=== PATIENT | female | born 1960 | race Caucasian/White ===

== ENCOUNTER 2021-04-19 16:57 | Emergency (ER) | payer OTHER, SELFPAY ==
--- NOTE | ~2021-04-19 | US_ITS ---
EXAMINATION: US VENOUS ULTRASOUND WITH DOPPLER LOWER EXTREMITY, BILATERAL CLINICAL INFORMATION: Pain. Swelling. COMPARISON: None TECHNIQUE: Ultrasound of the deep veins is performed from the hip to the calf with compression sonography and color and pulse Doppler assessment. Spectral analysis with color-flow imaging is performed. FINDINGS: RIGHT: There is normal venous compression and respiratory variation and augmented flow. The visualized common femoral vein, superficial femoral vein, profunda femoral vein, popliteal vein, and the trifurcation region shows no evidence of deep venous thrombosis. There is no significant popliteal fossa cyst. Edema in the subcutaneous tissue of the calf. Morphologically normal-appearing lymph nodes in the groin. LEFT: There is normal venous compression and respiratory variation and augmented flow. The visualized common femoral vein, superficial femoral vein, profunda femoral vein, popliteal vein, and the trifurcation region shows no evidence of deep venous thrombosis. There is no significant popliteal fossa cyst. Edema in the subcutaneous tissue of the calf. Morphologically normal-appearing lymph nodes in the groin. If the patient's symptoms persist, followup ultrasound in 5 days 7 days might be of value to exclude proximal propagation from a non-visualized calf vein. US/US venous duplex LE BI IMPRESSION: No DVT demonstrated in the bilateral lower extremity.
--- NOTE | ~2021-04-19 | CT_ITS ---
EXAMINATION: CT ANGIOGRAM OF THE CHEST WITH AND WITHOUT CONTRAST (CT PULMONARY ANGIOGRAM FOR PE) CLINICAL INFORMATION: Elevated d dimer. COMPARISON: Reports from prior abdominal ultrasound April 2006 TECHNIQUE: Prior to contrast administration, noncontrast localization images were obtained. Subsequently, multidetector volumetric imaging was performed from the thoracic inlet to below the diaphragms following the administration of 80 mL Omnipaque 350 intravenous contrast. No contrast reaction reported. Sagittal, coronal, and MIP oblique sagittal reformatted images were obtained on the CT workstation, uploaded to PACS, and reviewed. This CT examination was performed using dose optimization techniques as appropriate, variously including the following: *Automated exposure control *Adjustment of mA and/or kV according to patient size (this includes techniques or standardized protocols for targeted exams where dose is matched to indication/reason for exam; i.e. extremities or head) *Use of iterative reconstruction technique Total exam dose-length product 374 mGy-cm. FINDINGS: There is image degrading motion artifact. QUALITY OF STUDY/CONTRAST BOLUS: Suboptimal. Contrast is present within the pulmonary arteries but not as dense as it would be optimal. PULMONARY ARTERIES: No central or segmental pulmonary emboli. THORACIC AORTA: No aneurysm or dissection. LUNG: No focal consolidation, nodules or masses. PLEURA: No pleural effusion or pneumothorax. MEDIASTINUM: Normal heart size. No pericardial effusion. No hilar or mediastinal lymphadenopathy. No evidence of septal bowing or right heart strain. CHEST WALL/AXILLA: No axillary or internal mammary lymphadenopathy. OSSEOUS STRUCTURES: Multilevel spondylosis noted throughout the dorsal spine. Orthopedic hardware noted within the proximal humerus. UPPER ABDOMEN: No reflux of contrast into the hepatic veins to suggest elevated right heart pressures. Gallbladder present. Partially visualized common bile duct dilated at 12 mm. No stone or mass identified. No intrahepatic biliary dilatation. CT/CT angio chest PE protocol IMPRESSION: Slightly limited examination because of motion degrading artifact as well as suboptimal bolus timing for visualization of the pulmonary arteries. No evidence for pulmonary embolism. Lungs clear. Prominent common bile duct of uncertain etiology and significance. No evidence for stone or mass. . Correlate with laboratory values to help determine if any further workup is necessary.
[2021-04-19 17:40] VITALS: BP 154/91; PULSE 97; RESP 20; TEMP 37.1; O2SAT 96; BMI 37.4
[2021-04-19 18:58] LABS: MANUAL DIFF FLAG NO
[2021-04-19 19:00] LABS: Basophils Percent Auto 0.6 % (0-2); Eosinophils Absolute Auto 0.2 X10*3/uL (0.0-0.4); Eosinophils Percent Auto 2.4 % (0-4); Hematocrit 39.1 % (37-47); Hemoglobin 12.7 g/dl (12.0-16.0); Imm Gran Abs Auto 0.03 X10*3/uL (0.00-0.03); Imm Gran Pct Auto 0.4 % (0.0-0.4); Lymphocytes Absolute Auto 1.1 X10*3/uL (1.2-4.9); Lymphocytes Percent Auto 16.9 % (20-40); Mean Corpuscular HGB Conc 32.5 g/dl (31.0-35.0); Mean Corpuscular Hemoglobin 26.5 pg (27.0-33.0); Mean Corpuscular Volume 81.6 fL (80-98); Mean Platelet Volume 10.5 fL (9.4-12.3); Monocytes Absolute Auto 0.6 X10*3/uL (0.1-1.2); Monocytes Percent Auto 9.3 % (2-11); Neutrophils Absolute Auto 4.7 X10*3/uL (2.0-8.3); Neutrophils Percent Auto 70.4 % (45-73); Platelet Count 154 X10*3/uL (160-400); Red Blood Count 4.79 X10*6/uL (4.20-5.50); Red Cell Distribution Width 15.1 % (11.0-16.0); White Blood Count 6.7 X10*3/uL (4.8-10.8)
[2021-04-19 19:09] LABS: D Dimer 497 NG/ML
[2021-04-19 19:27] LABS: Alanine Aminotransferase 36 U/L (0-31); Albumin Level 4.5 g/dL (3.5-5.0); Alkaline Phosphatase 82 U/L (39-117); Anion Gap 16 (12-20); Aspartate Amino Transferase 44 U/L (5-31); Blood Urea Nitrogen 17 mg/dL (9-16); Calcium 9.9 mg/dL (8.4-10.2); Carbon Dioxide 26 mmol/L (22-29); Chloride 102 mmol/L (96-108); Creatinine Clr Calc Pharmacy 80.6; Estimated Glomerular Filt Rate > 60; Glucose Random 97 mg/dL (60-115); Potassium 3.6 mmol/L (3.3-5.1); Sodium 140 mmol/L (135-145)
--- NOTE | 2021-04-19 19:54 | ED_ITS ---
HPI - Extremity Problem General Chief complaint: Extremity Problem Stated complaint: swollen legs Time Seen by Provider: 04/19/21 22:21 Source: patient Mode of arrival: ambulatory Limitations: no limitations History of Present Illness HPI Narrative: 60-year-old female presents with several weeks of bilateral lower extremity swelling and increasing shortness of breath. She was seen at urgent care earlier today and was referred to the emergency department for DVT rule out. She does report some medication changes but does not recall what medication she was given in lieu of amlodipine. She does not report any chest pain or pressure, palpitations, abdominal pain, abdominal distention, dysuria, hematuria, fevers, chills, flights, hormone use, recent surgery, or any other concerning symptoms MD Complaint: extremity pain and extremity swelling Onset (ago): week(s) Pain Consistency: constant Location: left, right and lower extremity Severity scale (1-10): 7 Quality: aching Relieving factors: nothing Exacerbating factors: weight bearing Associated symptoms: shortness of breath Related Data Allergies Allergy/AdvReac Type Severity Reaction Status Date / Time azithromycin [AZITHROMYCIN] Allergy Unknown RASH Verified 04/19/21 17:39 acetaminophen [From Tylenol] Allergy Rash Verified 04/19/21 17:39 latex Allergy Hives Verified 04/19/21 17:39 Review of Systems Review of Systems: Constitutional: No Fever, No Chills ENT/Mouth: No Ear Pain, No Hoarseness, No sore throat Eyes: No Eye Pain, No Swelling, No Redness, No Foreign Body Cardiovascular: No Chest Pain, positive SOB Respiratory: No Cough, No Dyspnea Gastrointestinal: No Nausea, No Vomiting, No Diarrhea, No abdominal Pain Genitourinary: No Dysuria, No Hematuria Musculoskeletal: positive bilateral lower extremity pain and swelling, No Myalgias, No Joint Swelling Skin: No Skin lacerations, No rash Neuro: No Weakness, No Numbness, No Paresthesias, No Loss of Consciousness, No Dizziness, No Headache Psych: No Anxiety/Panic, No Depression Heme/Lymph: no easy bruising, no Lymphadenopathy Endocrine: No Polyuria, No Polydipsia Yes all other systems are reviewed and are negative PMFSH Past Medical History Attestation statement: The following information was validated with the patient. Source: old records reviewed Medical History Asthma Cirrhosis Eczema Hypothyroid Surgical History S/P rotator cuff repair Social History Social History Alcohol intake: never Patient Tobacco Use Status: Never used Tobacco Use of substances other than those prescribed or required for medical reasons: No Advance Directives: No Advance Directives Information Provided: Yes Patient : No Physical Exam Vital Signs: Vital Signs: Last Vital Signs Temp 98.8 F 04/19/21 22:51 Pulse 85 04/19/21 22:51 Resp 16 04/19/21 22:51 BP 139/91 H 04/19/21 22:51 Pulse Ox 98 04/19/21 22:51 Body Mass Index 37.4 Appearance: Alert. Oriented X3. No acute distress. Head: Normal external exam. Normocephalic. Atraumatic. No Arciniega signs noted. No raccoon eyes noted Eyes: PERRLA. EOMI. Conjunctiva and sclera normal. Eyelids normal. ENT: TM's Normal. Pharynx normal. Uvula midline. Moist mucous membranes. No trismus noted. No drooling noted. No muffled voice noted. Neck: Normal inspection. Neck supple. No adenopathy. Thyroid Normal. No meningeal signs. No neck mass noted. CVS: Normal heart rate and rhythm. Heart sound normal. No murmurs noted. Pulses equal to all extremities. Respiratory: No respiratory distress. Painless inspiration. Breath sounds sonya l. No wheezes/rales/rhonchi noted. Chest nontender. No accessory muscle usage noted or decreased air movement noted. Abdomen: Soft and nontender. Bowel sounds normal in all 4 quadrants. No distention noted. No organomegaly noted. No visible injury noted. Back: No CVA tenderness. Full range of motion noted. Skin: Skin warm and dry. Normal skin color. Normal skin turgor. No rashes/lesions/lacerations noted. Extremities: No appreciable extremity edema. Extremities exhibit normal range of motion. Extremities nontender. Neuro: cranial nerves 2-12 intact, no focal neural deficits, strength 5/5 to all extremities, No motor deficit. No sensory deficit. Course Course Course Narrative: 60-year-old female presents with bilateral lower extremity pain and swelling, and shortness of breath for the past 2 weeks. Lab values were drawn in the emergency department waiting room which indicates an elevated D-dimer. Due to this lab level we will order bilateral venous duplex and PE study protocol. 8:47 p.m. discussion with ultrasound, radiology. DVT study is negative. PE study is negative. Plan of care is to discharge home and have patient follow-up with primary care physician regarding bilateral lower extremity edema and possible need to change blood pressure medications. This was discussed in detail with patient, patient verbalized understanding of and agrees to plan of care discharge home. MDM - Extremity (Nontraumatic) Differential Diagnosis Differential diagnosis: Likely cellulitis and deep vein thrombosis of lower extremity Medical Records Attestation: I reviewed the patient's medical records. Lab Data Attestation: I reviewed the patient's lab results. Result diagrams: 04/19/21 18:37 04/19/21 18:37 Labs: Lab Results 04/19/21 04/19/21 04/19/21 Range/Units 18:37 18:37 18:37 WBC 6.7 (4.8-10.8) X10*3/uL RBC 4.79 (4.20-5.50) X10*6/uL Hgb 12.7 (12.0-16.0) g/dl Hct 39.1 (37-47) % MCV 81.6 (80-98) fL MCH 26.5 L (27.0-33.0) pg MCHC 32.5 (31.0-35.0) g/dl RDW 15.1 (11.0-16.0) % Plt Count 154 L (160-400) X10*3/uL MPV 10.5 (9.4-12.3) fL Immature Gran % (Auto) 0.4 (0.0-0.4) % Neut % (Auto) 70.4 (45-73) % Lymph % (Auto) 16.9 L (20-40) % [place] % (Auto) 9.3 (2-11) % Eos % (Auto) 2.4 (0-4) % Baso % (Auto) 0.6 (0-2) % Lymph # (Auto) 1.1 L (1.2-4.9) X10*3/uL [place] # (Auto) 0.6 (0.1-1.2) X10*3/uL Eos # (Auto) 0.2 (0.0-0.4) X10*3/uL Baso # (Auto) 0.0 (0.0-0.2) X10*3/uL Abs Immat Gran (auto) 0.03 (0.00-0.03) X10*3/uL Absolute Neuts (auto) 4.7 (2.0-8.3) X10*3/uL Absolute Nucleated RBC 0.000 (0.0-0.012) X10*3/uL Nucleated RBC % (auto) 0.0 (0.0-0.2) /100WBC D-Dimer 497 NG/ML Sodium 140 (135-145) mmol/L Potassium 3.6 (3.3-5.1) mmol/L Chloride 102 (96-108) mmol/L Carbon Dioxide 26 (22-29) mmol/L Anion Gap 16 (12-20) BUN 17 H (9-16) mg/dL Creatinine 0.89 (0.5-1.4) mg/dL Estim Creat Clear Calc 80.6 Estimated GFR > 60 Random Glucose 97 (60-115) mg/dL Calcium 9.9 (8.4-10.2) mg/dL Magnesium (1.6-2.6) mg/dL Total Bilirubin 1.0 (0.0-1.0) mg/dL AST 44 H (5-31) U/L ALT 36 H (0-31) U/L Alkaline Phosphatase 82 (39-117) U/L Troponin I High Sens (<3.5-17.0) ng/L B-Natriuretic Peptide (<100) pg/mL Total Protein 8.0 (6.5-8.0) g/dL Albumin 4.5 (3.5-5.0) g/dL 04/19/21 04/19/21 04/19/21 Range/Units 20:32 20:32 20:32 WBC (4.8-10.8) X10*3/uL RBC (4.20-5.50) X10*6/uL Hgb (12.0-16.0) g/dl Hct (37-47) % MCV (80-98) fL MCH (27.0-33.0) pg MCHC (31.0-35.0) g/dl RDW (11.0-16.0) % Plt Count (160-400) X10*3/uL MPV (9.4-12.3) fL Immature Gran % (Auto) (0.0-0.4) % Neut % (Auto) (45-73) % Lymph % (Auto) (20-40) % [place] % (Auto) (2-11) % Eos % (Auto) (0-4) % Baso % (Auto) (0-2) % Lymph # (Auto) (1.2-4.9) X10*3/uL [place] # (Auto) (0.1-1.2) X10*3/uL Eos # (Auto) (0.0-0.4) X10*3/uL Baso # (Auto) (0.0-0.2) X10*3/uL Abs Immat Gran (auto) (0.00-0.03) X10*3/uL Absolute Neuts (auto) (2.0-8.3) X10*3/uL Absolute Nucleated RBC (0.0-0.012) X10*3/uL Nucleated RBC % (auto) (0.0-0.2) /100WBC D-Dimer NG/ML Sodium (135-145) mmol/L Potassium (3.3-5.1) mmol/L Chloride (96-108) mmol/L Carbon Dioxide (22-29) mmol/L Anion Gap (12-20) BUN (9-16) mg/dL Creatinine (0.5-1.4) mg/dL Estim Creat Clear Calc Estimated GFR Random Glucose (60-115) mg/dL Calcium (8.4-10.2) mg/dL Magnesium 1.9 (1.6-2.6) mg/dL Total Bilirubin (0.0-1.0) mg/dL AST (5-31) U/L ALT (0-31) U/L Alkaline Phosphatase (39-117) U/L Troponin I High Sens 3.5 (<3.5-17.0) ng/L B-Natriuretic Peptide 34 (<100) pg/mL Total Protein (6.5-8.0) g/dL Albumin (3.5-5.0) g/dL Imaging Data Chest CT a: Attestation: I personally reviewed and interpreted this imaging study as follows: Radiologist's impression: FINDINGS: There is image degrading motion artifact. QUALITY OF STUDY/CONTRAST BOLUS: Suboptimal. Contrast is present within the pulmonary arteries but not as dense as it would be optimal. PULMONARY ARTERIES: No central or segmental pulmonary emboli. THORACIC AORTA: No aneurysm or dissection. LUNG: No focal consolidation, nodules or masses. PLEURA: No pleural effusion or pneumothorax. MEDIASTINUM: Normal heart size. No pericardial effusion. No hilar or mediastinal lymphadenopathy. No evidence of septal bowing or right heart strain. CHEST WALL/AXILLA: No axillary or internal mammary lymphadenopathy. OSSEOUS STRUCTURES: Multilevel spondylosis noted throughout the dorsal spine. Orthopedic hardware noted within the proximal humerus. UPPER ABDOMEN: No reflux of contrast into the hepatic veins to suggest elevated right heart pressures. Gallbladder present. Partially visualized common bile duct dilated at 12 mm. No stone or mass identified. No intrahepatic biliary dilatation. CT/CT angio chest PE protocol IMPRESSION: Slightly limited examination because of motion degrading artifact as well as suboptimal bolus timing for visualization of the pulmonary arteries. No evidence for pulmonary embolism. Lungs clear. Prominent common bile duct of uncertain etiology and significance. No evidence for stone or mass. . Correlate with laboratory values to help determine if any further workup is necessary. Venous duplex bilateral: Attestation: I personally reviewed and interpreted this imaging study as follows: Radiologist's impression: CLINICAL INFORMATION: Pain. Swelling. COMPARISON: None TECHNIQUE: Ultrasound of the deep veins is performed from the hip to the calf with compression sonography and color and pulse Doppler assessment. Spectral analysis with color-flow imaging is performed. FINDINGS: RIGHT: There is normal venous compression and respiratory variation and augmented flow. The visualized common femoral vein, superficial femoral vein, profunda femoral vein, popliteal vein, and the trifurcation region shows no evidence of deep venous thrombosis. There is no significant popliteal fossa cyst. Edema in the subcutaneous tissue of the calf. Morphologically normal-appearing lymph nodes in the groin. LEFT: There is normal venous compression and respiratory variation and augmented flow. The visualized common femoral vein, superficial femoral vein, profunda femoral vein, popliteal vein, and the trifurcation region shows no evidence of deep venous thrombosis. There is no significant popliteal fossa cyst. Edema in the subcutaneous tissue of the calf. Morphologically normal-appearing lymph nodes in the groin. If the patient's symptoms persist, followup ultrasound in 5 days 7 days might be of value to exclude proximal propagation from a non-visualized calf vein. US/US venous duplex LE BI IMPRESSION: No DVT demonstrated in the bilateral lower extremity. ECG Data Attestation EKG: I personally reviewed and interpreted this ECG as follows: ECG interpretation date: 04/19/21 ECG interpretation time: 20:27 Interpretation: Vent. rate 86 BPM NJ interval 154 ms QRS duration 76 ms QT/QTc 422/504 ms P-R-T axes 52 2 10 Normal sinus rhythm Prolonged QT Abnormal ECG No previous ECGs available Scores Wells DVT Localized tenderness along distribution of deep veins: 1 Entire leg swollen: 1 Score: 2 2-tier Risk: likely risk (17-53%) 3-tier Risk: moderate risk (17%) Wells PE Clinical symptoms of DVT: 3 Score: 3 2-tier Risk: likely risk (17-53%) 3-tier Risk: moderate risk (27.8%) Discharge Plan Discharge Clinical Impression: D-dimer, elevated, Swelling of both lower extremities Patient Disposition: Home, Self-Care Instructions: Edema (ED) Additional Instructions: you were evaluated for bilateral lower extremity swelling and shortness of breath. Your CT angio scan of the chest was negative for blood clots. Bilateral lower extremity venous duplex was negative for DVTs. Your D-dimer is elevated. You must follow-up with primary care physician for further workup. You did mention that your blood pressure medications were changed recently. Please discuss this change with your primary care physician. You have bilateral lower extremity edema and may need an increase in her hydrochlorothiazide or different diuretic. Thank you for choosing this emergency department for evaluation. Please follow-up with primary care physician as needed. Return to the emergency department for any new, concerning, or worsening symptoms. Interventions: ED Discharge Assessment Last Done: 04/19/21 23:01 Discharge Date/Time: 04/19/21 23:02
--- NOTE | 2021-04-19 19:54 | ECG_ITS ---
Test Reason : SOB Blood Pressure : / mmHG Vent. Rate : 086 BPM Atrial Rate : 086 BPM P-R Int : 154 ms QRS Dur : 076 ms QT Int : 422 ms P-R-T Axes : 052 002 010 degrees QTc Int : 504 ms Normal sinus rhythm Prolonged QT Abnormal ECG No previous ECGs available Referred By: Therese Hope Electronically Signed By:Luis Miguel Valdivia
[2021-04-19 19:55] VITALS: BP 155/82; PULSE 88; RESP 18; TEMP 36.9; O2SAT 94
[2021-04-19] MEDS: iohexoL 350 MG/ML 100 ML INFUS..BTL 65 ML IV (20:54)
[2021-04-19] MEDS: ondansetron HCL 4 MG/2 ML VIAL IVPUSH (20:55)
[2021-04-19] MEDS: Morphine Sulfate 4 MG/ML CARTRIDGE IVPUSH (20:55)
[2021-04-19 21:00] LABS: Magnesium 1.9 mg/dL (1.6-2.6)
[2021-04-19 21:04] LABS: B Type Natriuretic Peptide 34 pg/mL (<100); Troponin-I High Sensitivity 3.5 ng/L (<3.5-17.0)
[2021-04-19 21:06] VITALS: BP 150/88; PULSE 88; RESP 16; TEMP 37.1; O2SAT 94
[2021-04-19 22:51] VITALS: BP 139/91; PULSE 85; RESP 16; TEMP 37.1; O2SAT 98
== END 2021-04-19 23:02 | disposition home or self-care (01) ==
PROVIDERS: Nurse Practitioner Family; Emergency Provider Internal Medicine
DX: M79.89 Other specified soft tissue disorders (principal); R79.1 Abnormal coagulation profile; R06.02 Shortness of breath; M79.604 Pain in right leg; M79.605 Pain in left leg
CPT/HCPCS: 36415; 71275; 80053; 83735; 83880; 84484; 85025; 85379; 93005; 93970; 96374; 96375; 99284; J2270; J2405; Q9967

== ENCOUNTER 2023-08-28 16:31 | Emergency (ER) | payer OTHER, SELFPAY ==
--- NOTE | ~2023-08-28 | XR_ITS ---
EXAMINATION: XR CHEST CLINICAL INFORMATION: Productive cough COMPARISON: None available. TECHNIQUE: 2 views of the chest were obtained. FINDINGS: Rotated positioning. Cardiomediastinal silhouette is within normal limits. Slight elevation of the right hemidiaphragm. There is right basilar patchy airspace opacities. No dense consolidation in the left lung. No large effusion. No pulmonary edema. No pneumothorax. Thoracic spine degeneration. Orthopedic screws in the proximal right humerus. XR/XR chest 2V IMPRESSION: Right basilar patchy airspace opacities could reflect inflammatory or infectious process.
[2023-08-28 17:10] VITALS: BP 168/95; PULSE 87; RESP 18; TEMP 36.8; O2SAT 93; BMI 34.9
--- NOTE | 2023-08-28 17:12 | ED.GENADULT ---
HPI - General Adult General Chief complaint: Upper Respiratory Symptoms Stated complaint: cough, chest tightness Time Seen by Provider: 08/28/23 20:13 Source: patient, RN notes reviewed and old records reviewed Mode of arrival: ambulatory Limitations: no limitations History of Present Illness HPI narrative: Pt is a 63yo female w a pmhx including asthma who presents to the ED with a productive cough, sore throat, and body aches for a little over a week that has not improved. She notes a headache for the past few days as well. Pt has been using her inhalers as well as mucinex for the past week without improvement in her cough or SOB. Denies fevers, chills, nausea, vomiting, or changes in BM. Related Data Previous Rx's Medication Instructions Recorded amoxicillin 500 mg tablet 1,000 mg (2 x 500 mg) PO TID 7 08/28/23 days #42 tabs doxycycline hyclate 100 mg tablet 100 mg PO BID #14 tabs 08/28/23 prednisone 20 mg tablet 40 mg (2 x 20 mg) PO DAILY #10 tabs 08/28/23 Allergies Allergy/AdvReac Type Severity Reaction Status Date / Time azithromycin [AZITHROMYCIN] Allergy Unknown RASH Verified 08/28/23 17:14 acetaminophen [From Tylenol] Allergy Rash Verified 08/28/23 17:14 latex Allergy Hives Verified 08/28/23 17:14 Review of Systems Constitutional: Constitutional: Reports body ache(s), Denies chills, Reports fatigue, Denies fever(s), Reports headache(s), Reports malaise and Denies weakness Eyes: Eyes: Reports change in vision ENT: Denies dizziness, Reports headache(s) and Reports sore throat Cardiovascular: Cardiovascular: Denies chest pain and Reports dyspnea Respiratory: Respiratory: Reports change in phlegm color (yellow-green sputum), Reports chest congestion, Reports cough and Reports dyspnea Gastrointestinal: Gastrointestinal: Denies constipation, Denies diarrhea, Denies nausea and Denies vomiting Musculoskeletal: Musculoskeletal: Reports myalgias Neurologic: Denies dizziness, Reports headache(s) and Denies weakness Endocrine: Endocrine: Reports fatigue PMFSH Past Medical History Medical History Asthma Cirrhosis Eczema Hypothyroid Surgical History S/P rotator cuff repair Social History Alcohol intake: never Patient Tobacco Use Status: Never used Tobacco Advance Directives: No Advance Directives Information Provided: No Physical Exam ED Vital Signs: Vital Signs - 24 hr 08/28/23 17:10 08/28/23 19:56 08/28/23 19:56 Temperature 98.2 F 98.4 F Pulse Rate 87 85 Respiratory Rate 18 22 H Blood Pressure 168/95 H 146/92 H Pulse Oximetry 93 95 95 Oxygen Delivery Method Room Air Room Air Room Air 08/28/23 20:36 Temperature Pulse Rate Respiratory Rate Blood Pressure Pulse Oximetry 95 Oxygen Delivery Method BMI result Body Mass Index 34.9 Const General: cooperative, no acute distress, alert, awake and ill appearing Orientation/consciousness: patient oriented x3 HENMT Head: Yes normocephalic and Yes atraumatic Ears: hearing grossly normal bilaterally General nose exam: Normal external nose present Mouth: Normal oral and palatal mucosa present Eyes General: appearance normal, both eyes and all related structures Eyelids: Yes eyelids normal Conjunctivae: conjunctivae normal Sclerae: sclerae normal Pupils: Equal, round and reactive pupils present Neck Neck: Yes normal visual inspection Chest Chest palpation & inspection: normal inspection of the chest Resp Effort & Inspection: Actively coughing Quality: wet, no grunting, not labored, no nasal flaring, no pursed lip breathing, no retractions and symmetric chest movement Auscultation: wheezes (Diffuse wheezes in all lobes) Cardio Rate: regular rate Rhythm: regular rhythm Heart sounds: S1 normal heart sound present and S2 normal heart sound present Neuro General: patient oriented x3 Cranial nerves: Yes Equal, round and reactive pupils present Motor exam (neuro): 5/5 motor strength present throughout Course Course Course Narrative: This is a rapid medical exam: Additional HPI, ROS, PE not included below will be deferred to primary provider. Patient is a 63-year-old female with history of asthma, cirrhosis, hypothyroid, eczema presenting to the emergency department with complaint of cough, wheezing, chest tightness for the past week. States cough is productive of yellow/green sputum. Denies fevers. Has been using inhalers with little relief. Also complains of vomiting and diarrhea for 4 days. Has been able to tolerate water. Plan: swab for flu, Covid, rsv, cxr, basic labs Medical Decision Making Medical Decision Making [facility] Narrative: 63-year-old female with past medical history significant for asthma presents for evaluation of cough, chest tightness, shortness of breath, nausea and diarrhea. She is afebrile, slightly tachypneic at 23 although she has not been hypoxic. She has no leukocytosis, no significant electrolyte abnormalities. Chest x-ray shows right basilar infiltrates concerning for pneumonia. The patient has an allergy to azithromycin pain will treat with doxycycline and amoxicillin for community-acquired pneumonia. She had an ambulation trial without supplemental O2 and her oxygen saturation maintained at 95%. Differential Diagnosis Differential Diagnoses: The differential diagnosis associated with the presentation includes (right lower lobe community acquired pna, asthma exacerbation, viral bronchitis, flu, covid) Admission/Observation Consideration of admission/observation: Escalation of care including admission/observation considered Patient has pneumonia but no evidence of hypoxia or respiratory failure Lab Data [facility] Lab Attestation statement: I reviewed the patient's lab results. As above, no leukocytosis or electrolyte abnormalities. 08/28/23 17:19 08/28/23 17:19 Labs: Lab Results 08/28/23 Range/Units 17:19 WBC 10.0 (4.8-10.8) X10*3/uL RBC 5.20 (4.20-5.50) X10*6/uL Hgb 11.4 L (12.0-16.0) g/dl Hct 38.8 (37.0-47.0) % MCV 74.6 L (80.0-98.0) fL MCH 21.9 L (27.0-33.0) pg MCHC 29.4 L (31.0-35.0) g/dl RDW 18.6 H (11.0-16.0) % Plt Count 231 (160-400) X10*3/uL MPV 10.1 (9.4-12.3) fL Immature Gran % (Auto) 0.6 H (0.0-0.4) % Neut % (Auto) 69.3 (45-73) % Lymph % (Auto) 14.6 L (20-40) % Mobile % (Auto) 8.5 (2-11) % Eos % (Auto) 6.0 H (0-4) % Baso % (Auto) 1.0 (0-2) % Lymph # (Auto) 1.5 (1.2-4.9) X10*3/uL Mobile # (Auto) 0.9 (0.1-1.2) X10*3/uL Eos # (Auto) 0.6 H (0.0-0.4) X10*3/uL Baso # (Auto) 0.1 (0.0-0.2) X10*3/uL Abs Immat Gran (auto) 0.06 H (0.00-0.03) X10*3/uL Absolute Neuts (auto) 6.9 (2.0-8.3) x10*3/uL Absolute Nucleated RBC 0.000 (0.0-0.012) X10*3/uL Nucleated RBC % (auto) 0.0 (0.0-0.2) /100WBC Sodium 138 (135-145) mmol/L Potassium 4.4 D (3.3-5.1) mmol/L Chloride 104 (96-108) mmol/L Carbon Dioxide 27 (22-29) mmol/L Anion Gap 11 L (12-20) BUN 10 (9-16) mg/dL Creatinine 0.85 (0.5-1.4) mg/dL Estim Creat Clear Calc 78.3 Estimated GFR > 60 Random Glucose 91 (60-115) mg/dL Calcium 9.6 (8.4-10.2) mg/dL Influenza Type A (PCR) NEGATIVE (Negative) Influenza Type B (PCR) NEGATIVE (Negative) RSV RNA Qual (PCR) NEGATIVE (Negative) SARS-CoV-2 RNA (RT-PCR) NEGATIVE (Negative) Independent Interpretation I performed an independent interpretation of an: Plain X-Ray (No effusions) Radiology Impression Discussion of test interpretation with radiology: I have reviewed the radiologist's reading. (Right basilar patchy airspace opacities could reflect inflammatory or infectious process) Discharge Plan Discharge Clinical Impression: Community acquired pneumonia Patient Disposition: Home, Self-Care Instructions: Community Acquired Pneumonia (ED) Additional Instructions: Take both antibiotics as prescribed Take these medications with food, as they may cause upset stomach Take prednisone 40 mg daily for the next 5 days Continue to use your inhalers as prescribed Follow-up with your primary doctor Return for new or worsening symptoms Prescriptions: New prednisone 20 mg tablet 40 mg PO DAILY Qty: 10 0RF amoxicillin 500 mg tablet 1,000 mg PO TID 7 Days Qty: 42 0RF doxycycline hyclate 100 mg tablet 100 mg PO BID Qty: 14 0RF
[2023-08-28 17:27] LABS: MANUAL DIFF FLAG NO
[2023-08-28 17:28] LABS: Basophils Absolute Auto 0.1 X10*3/uL (0.0-0.2); Eosinophils Absolute Auto 0.6 X10*3/uL (0.0-0.4); Hematocrit 38.8 % (37.0-47.0); Hemoglobin 11.4 g/dl (12.0-16.0); Imm Gran Abs Auto 0.06 X10*3/uL (0.00-0.03); Imm Gran Pct Auto 0.6 % (0.0-0.4); Lymphocytes Absolute Auto 1.5 X10*3/uL (1.2-4.9); Lymphocytes Percent Auto 14.6 % (20-40); Mean Corpuscular HGB Conc 29.4 g/dl (31.0-35.0); Mean Corpuscular Hemoglobin 21.9 pg (27.0-33.0); Mean Corpuscular Volume 74.6 fL (80.0-98.0); Mean Platelet Volume 10.1 fL (9.4-12.3); Monocytes Absolute Auto 0.9 X10*3/uL (0.1-1.2); Monocytes Percent Auto 8.5 % (2-11); Neutrophils Absolute Auto 6.9 x10*3/uL (2.0-8.3); Neutrophils Percent Auto 69.3 % (45-73); Platelet Count 231 X10*3/uL (160-400); Red Cell Distribution Width 18.6 % (11.0-16.0)
[2023-08-28 17:42] LABS: Anion Gap 11 (12-20); Blood Urea Nitrogen 10 mg/dL (9-16); Calcium 9.6 mg/dL (8.4-10.2); Carbon Dioxide 27 mmol/L (22-29); Chloride 104 mmol/L (96-108); Creatinine Clr Calc Pharmacy 78.3; Estimated Glomerular Filt Rate > 60; Glucose Random 91 mg/dL (60-115); Potassium 4.4 mmol/L (3.3-5.1); Sodium 138 mmol/L (135-145)
[2023-08-28 18:05] LABS: Influenza A PCR NEGATIVE (Negative); Influenza B PCR NEGATIVE (Negative); Resp Syncy Virus RNA Qual PCR NEGATIVE (Negative); SARS COV2 PCR INHOUSE NEGATIVE (Negative)
[2023-08-28 19:56] VITALS: BP 146/92; PULSE 85; RESP 22; TEMP 36.9; O2SAT 95
--- NOTE | 2023-08-28 20:35 | PC.NURSE ---
ambulatory o2 trial per Mike PA; pt sats remain 94-96% RA. pt denies increased pain/sob with ambulation. steady gait.
[2023-08-28 20:36] VITALS: O2SAT 95
--- NOTE | 2023-08-28 20:49 | PC.NURSE ---
Respiratory therapist at bedside at this time administering updraft. Eleanor DAILEY aware.
[2023-08-28] MEDS: Albuterol Sulfate 2.5 MG, Albuterol/Iprat 2.5/0.5MG 3 ML 3 ML INHALE (20:56)
[2023-08-28 20:57] VITALS: PULSE 84; RESP 22; O2SAT 98
== END 2023-08-28 21:30 | disposition home or self-care (01) ==
PROVIDERS: Registered Nurse Emergency; Emergency Provider Emergency Medicine Emergency Medical Services; PCP Nurse Practitioner Family
DX: J18.9 Pneumonia, unspecified organism (principal); R05.9 Cough, unspecified; R07.89 Other chest pain; Z20.822 Contact with and (suspected) exposure to COVID-19; Z20.828 Contact with and (suspected) exposure to other viral communicable diseases; Z79.899 Other long term (current) drug therapy
CPT/HCPCS: 0241U; 71046; 80048; 85025; 94640; 99284

== ENCOUNTER 2023-09-26 11:40 | Inpatient (IN) | payer OTHER, SELFPAY ==
[2023-09-26] VITALS (7 sets, daily range): BP systolic 124–146; BP diastolic 65–83; PULSE 83–95; RESP 20–26; TEMP 36.1–36.5; O2SAT 93–97; BMI 35.3
--- NOTE | ~2023-09-26 | XR_ITS ---
EXAMINATION: XR chest 2V CLINICAL INFORMATION: Shortness of breath COMPARISON: No prior chest x-ray available in our system for comparison at the time of this dictation. TECHNIQUE: XR chest 2V, 2 Views Lungs and Sarah: Both lungs are clear. Pleura: Normal. Costophrenic angles are sharp. No pneumothorax. Heart: The heart is normal in size. Mediastinum: The mediastinum is within normal limits.. Bones: Skeletal structures included are normal for patient's age. XR/XR chest 2V IMPRESSION: No radiographic evidence of acute cardiopulmonary disease.
--- NOTE | ~2023-09-26 | CT_ITS ---
EXAMINATION: CT ANGIOGRAM OF THE CHEST WITH AND WITHOUT CONTRAST (CT PULMONARY ANGIOGRAM FOR PE) CLINICAL INFORMATION: Reason for Exam hypoxia, SOB COMPARISON: Chest x-ray 09/23/2023. TECHNIQUE: Prior to contrast administration, noncontrast localization images were obtained. Subsequently, multidetector volumetric imaging was performed from the thoracic inlet to below the diaphragms following the administration of 80 mL Omnipaque 350 intravenous contrast. No contrast reaction reported Sagittal, coronal, and MIP oblique sagittal reformatted images were obtained on the CT workstation, uploaded to PACS, and reviewed. This CT examination was performed using dose optimization techniques as appropriate, variously including the following: *Automated exposure control *Adjustment of mA and/or kV according to patient size (this includes techniques or standardized protocols for targeted exams where dose is matched to indication/reason for exam; i.e. extremities or head) *Use of iterative reconstruction technique Total exam dose-length product 413 mGy-cm FINDINGS: QUALITY OF STUDY/CONTRAST BOLUS: Suboptimal. PULMONARY ARTERIES: There is suboptimal contrast in the pulmonary arteries compatible aorta which is optimally opacified. No gross filling defects seen in the main pulmonary artery. Thrombi or small filling defects in the smaller branches of pulmonary artery cannot be excluded be excluded. THORACIC AORTA: No aneurysm. LUNG: No focal consolidation, nodules or masses. PLEURA: No pleural effusion or pneumothorax. MEDIASTINUM: Normal heart size. No pericardial effusion. No hilar or mediastinal lymphadenopathy. No evidence of septal bowing or right heart strain. CORONARY ARTERY CALCIFICATION: None visualized on this study. CHEST WALL/AXILLA: No axillary or internal mammary lymphadenopathy. OSSEOUS STRUCTURES: No aggressive lytic or sclerotic process seen. There is mild ventral spondylosis lower dorsal and upper lumbar spine. UPPER ABDOMEN: Liver contour is lobulated. Is partially visualized gallbladder and spleen is unremarkable. CT/CT angio chest PE protocol IMPRESSION: Suboptimal contrast the pulmonary arteries. Cannot exclude pulmonary emboli in the smaller pulmonary artery branches. Normal thoracic aorta. Cirrhotic appearing liver. VTE: negative
--- NOTE | 2023-09-26 12:02 | ECG_ITS ---
Test Reason : SOB Blood Pressure : / mmHG Vent. Rate : 084 BPM Atrial Rate : 084 BPM P-R Int : 108 ms QRS Dur : 072 ms QT Int : 394 ms P-R-T Axes : 057 009 014 degrees QTc Int : 465 ms Sinus rhythm with short NV Otherwise normal ECG When compared with ECG of 19-APR-2021 20:27, No significant changes seen Referred By: Julisa Espinoza Electronically Signed By:JOEL YANES
--- NOTE | 2023-09-26 12:02 | ED_ITS ---
HPI - General Adult General Chief complaint: Asthma Stated complaint: cough diff breathing Time Seen by Provider: 09/26/23 12:08 Source: patient Mode of arrival: ambulatory Limitations: no limitations History of Present Illness HPI narrative: 63-year-old female with a history of asthma who presents to the ER with complaints of wheezing, cough with green sputum and shortness of breath for several weeks. Patient reports she was diagnosed with pneumonia August 28 and completed a course of amoxicillin and prednisone but never seemed to improve. She is using her home albuterol with continued symptoms. No fevers, chills, chest pain, leg swelling or leg pain. Related Data Home Medications Medication Instructions Recorded Confirmed albuterol sulfate 2.5 mg/3 mL 2.5 mg inhalation Q6H PRN wheezing 09/26/23 09/26/23 (0.083 %) solution for nebulization albuterol sulfate 90 mcg/actuation 1 puff inhalation Q6H PRN wheezing 09/26/23 09/26/23 aerosol inhaler (Ventolin HFA) bupropion HCl 150 mg 24 hr tablet, 150 mg PO DAILY 09/26/23 09/26/23 extended release clonidine HCl 0.1 mg tablet 0.1 mg PO BID 09/26/23 09/26/23 fluoxetine 20 mg capsule 20 mg PO TID 09/26/23 09/26/23 hydroxyzine pamoate 50 mg capsule 50 mg PO TID 09/26/23 09/26/23 ketoconazole 2 % shampoo 1 appl topical 2XW 09/26/23 09/26/23 levothyroxine 88 mcg tablet 88 mcg PO DAILY 09/26/23 09/26/23 lisinopril 10 mg tablet 10 mg PO DAILY 09/26/23 09/26/23 loperamide 2 mg capsule 2 mg PO Q4H PRN Loose Stool 09/26/23 09/26/23 melatonin 5 mg disintegrating 5 - 10 mg PO BEDTIME 09/26/23 09/26/23 tablet pantoprazole 40 mg tablet,delayed 40 mg PO DAILY 09/26/23 09/26/23 release triamcinolone acetonide 0.1 % 1 appl topical BID PRN Rash 09/26/23 09/26/23 topical ointment zolpidem 10 mg tablet 10 mg PO BEDTIME 09/26/23 09/26/23 Allergies Allergy/AdvReac Type Severity Reaction Status Date / Time azithromycin [AZITHROMYCIN] Allergy Unknown RASH Verified 09/26/23 12:05 acetaminophen [From Tylenol] Allergy Rash Verified 09/26/23 12:05 latex Allergy Hives Verified 09/26/23 12:05 Review of Systems 2 Review of Systems: Yes all other systems are reviewed and are negative Constitutional: Constitutional: Reports no additional constitutional complaints, Denies body ache(s), Denies chills, Denies fever(s), Denies headache(s) and Denies weakness Eyes: Eyes: Reports no additional eye complaints and Denies change in vision ENT: Reports system reviewed and no additional complaints, except as documented, Denies dizziness, Denies headache(s), Denies nasal congestion, Denies nasal discharge and Denies neck pain Cardiovascular: Cardiovascular: Reports no additional cardiovascular complaints, Denies chest pain, Denies leg edema and Reports dyspnea Respiratory: Respiratory: Reports no additional respiratory complaints, Reports cough, Reports dyspnea and Reports wheezing Gastrointestinal: Gastrointestinal: Reports no additional gastrointestinal complaints, Denies abdominal pain, Denies diarrhea, Denies nausea and Denies vomiting Genitourinary: Genitourinary: Reports no additional female genitourinary complaints and Denies urinary incontinence Musculoskeletal: Musculoskeletal: Reports no additional musculoskeletal complaints, Denies back pain, Denies arthralgias, Denies joint swelling, Denies neck pain, Denies numbness and Denies tingling Integumentary/Breasts: Skin/Breast: Reports system reviewed and no additional complaints, except as docu and Denies rash Neurologic: Reports system reviewed and no additional complaints, except as documented, Denies Abnormal speech present, Denies dizziness, Denies headache(s), Denies numbness, Denies tingling and Denies weakness Allergic/Immunologic: Allergic/Immunologic: Reports wheezing PMFSH Past Medical History Attestation statement: The following information was validated with the patient. Source: old records reviewed and nursing notes reviewed Medical History Eczema Cirrhosis Hypothyroid Asthma Surgical History S/P rotator cuff repair Social History Social History Alcohol intake: never Patient Tobacco Use Status: Never used Tobacco Advance Directives: No Advance Directives Information Provided: No Physical Exam ED Vital Signs: Vital Signs - 24 hr 09/26/23 12:00 09/26/23 12:23 09/26/23 13:25 Temperature 97.3 F Pulse Rate 83 84 83 Respiratory Rate 20 26 H 21 H Blood Pressure 146/83 H Pulse Oximetry 93 Oxygen Delivery Method Room Air 09/26/23 13:44 Temperature 97.7 F Pulse Rate 86 Respiratory Rate 20 Blood Pressure 124/71 Pulse Oximetry 95 Oxygen Delivery Method Room Air BMI result Body Mass Index 35.3 Const General: cooperative, healthy appearing, comfortable and no acute distress Orientation/consciousness: patient oriented x3 Limitations: no limitations HENMT Head: Yes normal to inspection Ears: hearing grossly normal bilaterally General nose exam: Normal external nose present Face and sinus: Yes normal facial exam Mouth: Normal oral and palatal mucosa present Throat: Yes posterior oropharynx normal Eyes General: appearance normal, both eyes and all related structures Pupils: Equal, round and reactive pupils present Neck Neck: Yes normal visual inspection Chest Chest palpation & inspection: normal inspection of the chest Resp Effort & Inspection: normal respiratory effort Auscultation: wheezes Cardio Rate: regular rate Rhythm: regular rhythm Peripheral pulses: Peripheral pulses 2+ throughout GI Inspection: Yes normal to inspection Palpation (GI): Soft to palpation and nontender Auscultation: normal bowel sounds Back/Spine/Pelvis Thoracic/Lumbar Spine: thoracic and lumbar spine normal to inspection Skin General skin exam: no rashes or lesions noted Neuro General: patient oriented x3, no focal motor deficits and normal sensation to monofilament Cranial nerves: Yes Equal, round and reactive pupils present Cognition (Neuro): normal cognition Speech: No Abnormal speech present Gait exam (Neuro): Normal gait present Motor exam (neuro): 5/5 motor strength present throughout Extrem General: Yes normal to inspection, Yes no pedal edema and Yes no calf tenderness Course Course Course Narrative: RME performed by Julisa Espinoza PA-C. Patient is a 63 year old assigned female at presenting to the emergency department with shortness of breath. Labs, imaging, and swabs ordered. Patient placed back in the waiting room pending room availability and results. Reevaluation(s) Reevaluation #1: 1415-patient ambulated with room air saturation of 84%. Patient was brought back to the room and placed on supplemental oxygen with improvement. Patient has received Solu-Medrol, magnesium, several rounds of albuterol with continued wheezing and hypoxia. At this point I believe she would benefit from admission. Due to the profound hypoxia I will add a CTA to rule out PE Medications Administered Generic Name Dose Route Start Last Admin Trade Name Freq PRN Reason Stop Dose Admin Albuterol/Ipratropium 3 ml 09/26/23 16:00 09/26/23 15:08 Albuterol/Iprat 2.5/0.5mg 3 Ml Ampul.Neb INHALE Not Given RQ4H WHILE AWAKE KACY Discontinued Medications Generic Name Dose Route Start Last Admin Trade Name Freq PRN Reason Stop Dose Admin Albuterol Sulfate 2.5 mg/ 5 mg 09/26/23 13:21 09/26/23 13:24 Albuterol Sulfate 2.5 mg INHALE 09/26/23 13:22 5 mg ONCE ONE Administration Albuterol Sulfate 5 mg/ 0 mg 09/26/23 12:15 09/26/23 12:22 Albuterol/Ipratropium 3 ml INHALE 09/26/23 12:16 5 each ONCE ONE Administration Magnesium Sulfate 2 gm in 50 mls @ 25 mls/hr 09/26/23 12:19 09/26/23 13:00 Magnesium Sulfate/H2o IV 09/26/23 14:18 0 mls/hr ONCE ONE Infusion Iohexol 100 ml 09/26/23 14:41 09/26/23 14:41 Iohexol 350 Mg/Ml 100 Ml Infus..Btl IV 09/26/23 14:42 65 ml ONCE ONE Administration Methylprednisolone Sodium Succinate 125 mg 09/26/23 12:19 09/26/23 12:46 Methylprednisolone Sod Succ 125 Mg/2 Ml Vial IVPUSH 09/26/23 12:20 125 mg ONCE ONE Administration Medical Decision Making Medical Decision Making MDM Narrative: 63-year-old female with a history of asthma who presents to the ER with complaints of wheezing, cough with green sputum and shortness of breath for several weeks.? Patient reports she was diagnosed with pneumonia August 28 and completed a course of amoxicillin and prednisone but never seemed to improve.? She is using her home albuterol with continued symptoms.? No fevers, chills, chest pain, leg swelling or leg pain. Wheezing throughout. Will need labs, viral testing, chest x-ray, EKG Will give Solu-Medrol, magnesium, albuterol Differential Diagnosis Differential Diagnoses: The differential diagnosis associated with the presentation includes Asthma exacerbation Pneumonia Low concern for PE Admission/Observation Consideration of admission/observation: Escalation of care including admission/observation considered Hypoxia despite multiple rounds of nebulizers, magnesium and solumedrol requiring supplemental oxygen and admission Lab Data MDM Lab Attestation statement: I reviewed the patient's lab results. 09/26/23 12:15 09/26/23 12:15 Labs: Lab Results 09/26/23 09/26/23 Range/Units 12:15 12:35 WBC 6.9 (4.8-10.8) X10*3/uL RBC 5.18 (4.20-5.50) X10*6/uL Hgb 11.5 L (12.0-16.0) g/dl Hct 38.1 (37.0-47.0) % MCV 73.6 L (80.0-98.0) fL MCH 22.2 L (27.0-33.0) pg MCHC 30.2 L (31.0-35.0) g/dl RDW 18.5 H (11.0-16.0) % Plt Count 210 (160-400) X10*3/uL MPV 10.3 (9.4-12.3) fL Immature Gran % (Auto) 0.4 (0.0-0.4) % Neut % (Auto) 68.7 (45-73) % Lymph % (Auto) 13.4 L (20-40) % [place] % (Auto) 8.4 (2-11) % Eos % (Auto) 8.2 H (0-4) % Baso % (Auto) 0.9 (0-2) % Lymph # (Auto) 0.9 L (1.2-4.9) X10*3/uL [place] # (Auto) 0.6 (0.1-1.2) X10*3/uL Eos # (Auto) 0.6 H (0.0-0.4) X10*3/uL Baso # (Auto) 0.1 (0.0-0.2) X10*3/uL Abs Immat Gran (auto) 0.03 (0.00-0.03) X10*3/uL Absolute Neuts (auto) 4.8 (2.0-8.3) x10*3/uL Absolute Nucleated RBC 0.000 (0.0-0.012) X10*3/uL Nucleated RBC % (auto) 0.0 (0.0-0.2) /100WBC PT 14.2 H (11.1-13.3) SEC INR 1.2 H (0.9-1.1) APTT 32.2 (26.0-36.4) SEC Sodium 136 (135-145) mmol/L Potassium 4.0 (3.3-5.1) mmol/L Chloride 101 (96-108) mmol/L Carbon Dioxide 27 (22-29) mmol/L Anion Gap 12 (12-20) BUN 12 (9-16) mg/dL Creatinine 0.85 (0.5-1.4) mg/dL Estim Creat Clear Calc 78.7 Estimated GFR > 60 Random Glucose 119 H (60-115) mg/dL Lactic Acid 0.9 (0.5-2.0) mmol/L Calcium 9.6 (8.4-10.2) mg/dL Magnesium 2.0 (1.6-2.6) mg/dL Iron 53 (30-160) mcg/dL TIBC 375 (228-428) mcg/dL % Saturation 14 L (15-50) % Unsat Iron Binding 322 ug/dL Total Bilirubin 0.8 (0.0-1.0) mg/dL AST 33 H (5-31) U/L ALT 24 (0-31) U/L Alkaline Phosphatase 71 (39-117) U/L Troponin I High Sens < 2.7 (<3.5-17.0) ng/L Total Protein 8.2 H (6.5-8.0) g/dL Albumin 4.5 (3.5-5.0) g/dL Influenza Type A (PCR) NEGATIVE (Negative) Influenza Type B (PCR) NEGATIVE (Negative) RSV RNA Qual (PCR) NEGATIVE (Negative) SARS-CoV-2 RNA (RT-PCR) NEGATIVE (Negative) Independent Interpretation I performed an independent interpretation of an: EKG and Plain X-Ray Interpretation: I independently reviewed the chest x-ray/CTA and agree with the radiology report I independently reviewed the EKG which shows a normal sinus rhythm with a rate 84, normal IN, QRS normal Radiology Impression Discussion of test interpretation with radiology: I have reviewed the radiologist's reading. Radiologist Impression: [address] [address] XRay Report Signed Patient: Elisabeth De Anda MR#: [id number] : 1960 Acct:[id number] Age/Sex: 63 / F ADM Date: 09/26/23 Loc: HO.ED Attending Dr: Ordering Physician: Julisa Espinoza Date of Service: 09/26/23 Procedure(s): XR chest 2V Accession Number(s): [id number] cc: Julisa Espinoza; Viv Mcgovern CNP~ EXAMINATION: XR chest 2V CLINICAL INFORMATION: Shortness of breath COMPARISON: No prior chest x-ray available in our system for comparison at the time of this dictation. TECHNIQUE: XR chest 2V, 2 Views Lungs and Sarah: Both lungs are clear. Pleura: Normal. Costophrenic angles are sharp. No pneumothorax. Heart: The heart is normal in size. Mediastinum: The mediastinum is within normal limits.. Bones: Skeletal structures included are normal for patient's age. XR/XR chest 2V IMPRESSION: No radiographic evidence of acute cardiopulmonary disease. [address] [address] [address] Scan Report Signed Patient: Elisabeth De Anda MR#: [id number] : 1960 Acct:[id number] Age/Sex: 63 / F ADM Date: 09/26/23 Loc: HO.S3 372-[address]: Dave Bains MD Ordering Physician: Jessie Bear NP Date of Service: 09/26/23 Procedure(s): CT angio chest PE protocol Accession Number(s): [id number] cc: Viv Mcgovern CNP; Jessie Bear NP~ EXAMINATION: CT ANGIOGRAM OF THE CHEST WITH AND WITHOUT CONTRAST (CT PULMONARY ANGIOGRAM FOR PE) CLINICAL INFORMATION: Reason for Exam hypoxia, SOB COMPARISON: Chest x-ray 09/23/2023. TECHNIQUE: Prior to contrast administration, noncontrast localization images were obtained. Subsequently, multidetector volumetric imaging was performed from the thoracic inlet to below the diaphragms following the administration of 80 mL Omnipaque 350 intravenous contrast. No contrast reaction reported Sagittal, coronal, and MIP oblique sagittal reformatted images were obtained on the CT workstation, uploaded to PACS, and reviewed. This CT examination was performed using dose optimization techniques as appropriate, variously including the following: *Automated exposure control *Adjustment of mA and/or kV according to patient size (this includes techniques or standardized protocols for targeted exams where dose is matched to indication/reason for exam; i.e. extremities or head) *Use of iterative reconstruction technique Total exam dose-length product 413 mGy-cm FINDINGS: QUALITY OF STUDY/CONTRAST BOLUS: Suboptimal. PULMONARY ARTERIES: There is suboptimal contrast in the pulmonary arteries compatible aorta which is optimally opacified. No gross filling defects seen in the main pulmonary artery. Thrombi or small filling defects in the smaller branches of pulmonary artery cannot be excluded be excluded. THORACIC AORTA: No aneurysm. LUNG: No focal consolidation, nodules or masses. PLEURA: No pleural effusion or pneumothorax. MEDIASTINUM: Normal heart size. No pericardial effusion. No hilar or mediastinal lymphadenopathy. No evidence of septal bowing or right heart strain. CORONARY ARTERY CALCIFICATION: None visualized on this study. CHEST WALL/AXILLA: No axillary or internal mammary lymphadenopathy. OSSEOUS STRUCTURES: No aggressive lytic or sclerotic process seen. There is mild ventral spondylosis lower dorsal and upper lumbar spine. UPPER ABDOMEN: Liver contour is lobulated. Is partially visualized gallbladder and spleen is unremarkable. CT/CT angio chest PE protocol IMPRESSION: Suboptimal contrast the pulmonary arteries. Cannot exclude pulmonary emboli in the smaller pulmonary artery branches. Normal thoracic aorta. Cirrhotic appearing liver. VTE: negative Critical Care Time Critical Care Time Critical Care Time: Yes Total Critical Care Time: 60 Attestation: Hypoxia requiring supplemental oxygen, multiple re-evaluations post nebulizer Discharge Plan Discharge Clinical Impression: Asthma with acute exacerbation, Hypoxia Patient Disposition: Admitted As Inpatient Interventions: Admission Worksheet (ED) Last Done: 09/26/23 15:35
[2023-09-26] MEDS: Albuterol Sulfate 5 MG, Albuterol/Iprat 2.5/0.5MG 3 ML 3 ML INHALE (12:22)
[2023-09-26 12:27] LABS: MANUAL DIFF FLAG NO
[2023-09-26 12:31] LABS: Basophils Absolute Auto 0.1 X10*3/uL (0.0-0.2); Basophils Percent Auto 0.9 % (0-2); Eosinophils Absolute Auto 0.6 X10*3/uL (0.0-0.4); Eosinophils Percent Auto 8.2 % (0-4); Hematocrit 38.1 % (37.0-47.0); Hemoglobin 11.5 g/dl (12.0-16.0); Imm Gran Abs Auto 0.03 X10*3/uL (0.00-0.03); Imm Gran Pct Auto 0.4 % (0.0-0.4); Lymphocytes Absolute Auto 0.9 X10*3/uL (1.2-4.9); Lymphocytes Percent Auto 13.4 % (20-40); Mean Corpuscular HGB Conc 30.2 g/dl (31.0-35.0); Mean Corpuscular Hemoglobin 22.2 pg (27.0-33.0); Mean Corpuscular Volume 73.6 fL (80.0-98.0); Mean Platelet Volume 10.3 fL (9.4-12.3); Monocytes Absolute Auto 0.6 X10*3/uL (0.1-1.2); Monocytes Percent Auto 8.4 % (2-11); Neutrophils Absolute Auto 4.8 x10*3/uL (2.0-8.3); Neutrophils Percent Auto 68.7 % (45-73); Platelet Count 210 X10*3/uL (160-400); Red Blood Count 5.18 X10*6/uL (4.20-5.50); Red Cell Distribution Width 18.5 % (11.0-16.0); White Blood Count 6.9 X10*3/uL (4.8-10.8)
[2023-09-26 12:40] LABS: INTERNATIONAL NORM RATIO 1.2 (0.9-1.1); Prothrombin Time 14.2 SEC (11.1-13.3)
[2023-09-26 12:43] LABS: Partial Thromboplastin Time 32.2 SEC (26.0-36.4)
[2023-09-26 12:45] LABS: Alanine Aminotransferase 24 U/L (0-31); Albumin Level 4.5 g/dL (3.5-5.0); Alkaline Phosphatase 71 U/L (39-117); Anion Gap 12 (12-20); Aspartate Amino Transferase 33 U/L (5-31); Bilirubin Total 0.8 mg/dL (0.0-1.0); Blood Urea Nitrogen 12 mg/dL (9-16); Calcium 9.6 mg/dL (8.4-10.2); Carbon Dioxide 27 mmol/L (22-29); Chloride 101 mmol/L (96-108); Creatinine Clr Calc Pharmacy 78.7; Estimated Glomerular Filt Rate > 60; Glucose Random 119 mg/dL (60-115); Sodium 136 mmol/L (135-145); Total Protein 8.2 g/dL (6.5-8.0)
[2023-09-26] MEDS: methylPREDNISolone Sod Succ 125 MG/2 ML VIAL IVPUSH (12:46)
[2023-09-26] MEDS: Magnesium Sulfate/H2O 2 GM/50 ML PIGGYBACK IV (12:46)
[2023-09-26 12:53] LABS: Lactic Acid 0.9 mmol/L (0.5-2.0)
[2023-09-26 13:05] LABS: Troponin-I High Sensitivity < 2.7 ng/L (<3.5-17.0)
[2023-09-26 13:11] LABS: Influenza A PCR NEGATIVE (Negative); Influenza B PCR NEGATIVE (Negative); Resp Syncy Virus RNA Qual PCR NEGATIVE (Negative); SARS COV2 PCR INHOUSE NEGATIVE (Negative)
[2023-09-26] MEDS: Albuterol Sulfate 2.5 MG, Albuterol Sulfate (0.083%) 2.5 MG 5 MG INHALE (13:24)
[2023-09-26] MEDS: iohexoL 350 MG/ML 100 ML INFUS..BTL IV (14:41)
--- NOTE | 2023-09-26 14:56 | P.HPHOSP_ITS ---
History of Present Illness Date of Service: 09/26/23 Chief Complaint: sob 63F PMH moderate persistent asthma, hypothyroid, mood disorder, obesity, htn, compensated HCV cirrhosis s/p treatement, lichen planus, presented with sob. Patient was diagnosed with right lower lobe pneumonia on 08/28/2023. Completed course of antibiotics and steroids with some improvement. However, patient states she never fully recovered. She continues to have shortness of breath and productive green cough. On day of presentation shortness of breath significantly worsened so she came to the ED. In the ED patient desaturated to low 80s on ambulation. Recovers at rest. Chest x-ray unremarkable. denies fevers, chills. Review of Systems 2 Review of Systems: Yes all other systems are reviewed and are negative FORMERLY [facility], 1928–1983 Medical History Eczema Cirrhosis Hypothyroid Asthma Surgical History S/P rotator cuff repair Social History Alcohol intake: never Patient Tobacco Use Status: Never used Tobacco Advance Directives: No Advance Directives Information Provided: No Meds Allergies Allergy/AdvReac Type Severity Reaction Status Date / Time azithromycin [AZITHROMYCIN] Allergy Unknown RASH Verified 09/26/23 12:05 acetaminophen [From Tylenol] Allergy Rash Verified 09/26/23 12:05 latex Allergy Hives Verified 09/26/23 12:05 Physical Exam 2 Vital Signs and Narrative: Vital Signs: Last Vital Signs Temp 97.7 F 09/26/23 13:44 Pulse 86 09/26/23 13:44 Resp 20 09/26/23 13:44 BP 124/71 09/26/23 13:44 Pulse Ox 95 09/26/23 13:44 O2 Del Method Room Air 09/26/23 13:44 BMI result Body Mass Index 35.3 General: AO X 3, no acute distress Resp: poor air entry, wheezing bilateral, no accessory muscles used CVS: S1,S2,RRR GI: soft, non tender, non distended Neuro: motor grossly intact, alert Psych: appropriate affect, appropriate insight Results Labs 09/26/23 12:15 09/26/23 12:15 Labs: Laboratory Results - last 24 hr 09/26/23 09/26/23 12:15 12:35 MCV 73.6 L MCH 22.2 L MCHC 30.2 L RDW 18.5 H Plt Count 210 MPV 10.3 Immature Gran % (Auto) 0.4 Neut % (Auto) 68.7 Lymph % (Auto) 13.4 L [place] % (Auto) 8.4 Eos % (Auto) 8.2 H Baso % (Auto) 0.9 Lymph # (Auto) 0.9 L [place] # (Auto) 0.6 Eos # (Auto) 0.6 H Baso # (Auto) 0.1 Abs Immat Gran (auto) 0.03 Absolute Neuts (auto) 4.8 Absolute Nucleated RBC 0.000 Nucleated RBC % (auto) 0.0 PT 14.2 H INR 1.2 H APTT 32.2 Anion Gap 12 Estim Creat Clear Calc 78.7 Estimated GFR > 60 Random Glucose 119 H Lactic Acid 0.9 Calcium 9.6 Magnesium 2.0 Total Bilirubin 0.8 AST 33 H ALT 24 Alkaline Phosphatase 71 Total Protein 8.2 H Albumin 4.5 Influenza Type A (PCR) NEGATIVE Influenza Type B (PCR) NEGATIVE RSV RNA Qual (PCR) NEGATIVE SARS-CoV-2 RNA (RT-PCR) NEGATIVE Imaging Radiologist's Impressions: Impressions Chest X-Ray 09/26/23 12:58 IMPRESSION: No radiographic evidence of acute cardiopulmonary disease. Assessment and Plan (1) Hypoxia: Status: Acute Plan 63F PMH moderate persistent asthma, hypothyroid, mood disorder, obesity, htn, compensated HCV cirrhosis s/p treatement, lichen planus, presented with sob Acute hypoxic respiratory failure secondary to monitor persistent asthma with acute decompensation IV Solu-Medrol, DuoNebs Wean O2 as tolerated mild microcytic anemia check iron studies, no gross bleeding Hypothyroid Continue levothyroxine Mood disorder Clonidine, atarax, buproprion Hypertension lisinopril, Compensated HCV cirrhosis Status post treatment for HCV Obesity Weight loss recommended DVT prophylaxis with Lovenox Full code Patient with significant asthma decompensation requiring O2 supplementation, still diffusely wheezing, at risk for further decompensation due to obesity, cirrhosis, htn, expected require at least 2 midnights inpatient to be able to deescalate to outpatient care. Quality Stroke Does the patient have a stroke diagnosis?: No VTE Prior VTE?: No VTE Risk Level:: Medical - moderate - high VTE Device Contraindication: Treatment Not Indicated VTE Drug Contraindication: N/A - Med Ordered
[2023-09-26 15:20] LABS: Appearance Urine Clear; Color Urine Yellow; Glucose Urine UA Negative (Negative); Leukocyte Esterase Urine Negative (Negative); Nitrite Urine Negative (Negative); PH 5.5 (5.0-9.0); Specific Gravity - Urine 1.015 (1.005-1.025); Urine Blood Negative (Negative); Urine Ketones Negative (Negative); Urine Protein Negative (Neg-Trace)
--- NOTE | 2023-09-26 15:40 | PHA.MEDREC ---
Pharmacy Consult ? Medication Reconciliation Pharmacy has completed the medication reconciliation. spoke with patient to confirm medications. verified with claim history.
[2023-09-26 15:47] LABS: Iron 53 mcg/dL (30-160); Percent Iron Saturation 14 % (15-50); Total Iron Binding Capacity 375 mcg/dL (228-428); Unsaturated Iron Binding 322 ug/dL
[2023-09-26 16:07] LABS: Ferritin 11 ng/mL (10-250)
[2023-09-26] MEDS: 0.9 % Sodium Chloride Flush 3 ML SYRINGE IVFLUSH ×2 (16:49→22:18)
[2023-09-26] MEDS: Albuterol/Iprat 2.5/0.5MG 3 ML AMPUL.NEB INHALE (19:44)
[2023-09-26] MEDS: Zolpidem Tartrate 5 MG TABLET PO (22:17)
[2023-09-26] MEDS: cloNIDine HCL 0.1 MG TABLET PO (22:17)
[2023-09-27] VITALS (9 sets, daily range): BP systolic 105–141; BP diastolic 55–90; PULSE 79–97; RESP 14–20; TEMP 36.2–36.4; O2SAT 95–99
[2023-09-27] MEDS: Albuterol/Iprat 2.5/0.5MG 3 ML AMPUL.NEB INHALE ×5 (03:37→20:11)
[2023-09-27] MEDS: Levothyroxine Sodium 88 MCG TABLET PO (05:37)
[2023-09-27] MEDS: Omeprazole 20 MG CAPSULE.DR PO (05:37)
[2023-09-27 06:23] LABS: Hematocrit 36.2 % (37.0-47.0); Hemoglobin 10.7 g/dl (12.0-16.0); Mean Corpuscular HGB Conc 29.6 g/dl (31.0-35.0); Mean Corpuscular Hemoglobin 21.7 pg (27.0-33.0); Mean Corpuscular Volume 73.6 fL (80.0-98.0); Mean Platelet Volume 10.3 fL (9.4-12.3); Platelet Count 213 X10*3/uL (160-400); Red Blood Count 4.92 X10*6/uL (4.20-5.50); Red Cell Distribution Width 18.3 % (11.0-16.0); White Blood Count 13.6 X10*3/uL (4.8-10.8)
[2023-09-27 06:39] LABS: Anion Gap 13 (12-20); Blood Urea Nitrogen 12 mg/dL (9-16); Calcium 9.7 mg/dL (8.4-10.2); Carbon Dioxide 25 mmol/L (22-29); Chloride 103 mmol/L (96-108); Creatinine Clr Calc Pharmacy 85.8; Estimated Glomerular Filt Rate > 60; Glucose Fasting 87 mg/dL (60-99); Potassium 4.3 mmol/L (3.3-5.1); Sodium 137 mmol/L (135-145)
[2023-09-27] MEDS: buPROPion HCl XL 150 MG TAB.ER.24H PO (08:15)
[2023-09-27] MEDS: Doxycycline Monohydrate 100 MG CAPSULE PO ×2 (08:15→19:55)
[2023-09-27] MEDS: lisinopriL 10 MG TABLET PO (08:15)
[2023-09-27] MEDS: Enoxaparin Sodium 40 MG/0.4 ML SYRINGE SUBCUT (08:15)
[2023-09-27] MEDS: FLUoxetine HCl 20 MG CAPSULE PO ×3 (08:15→19:55)
[2023-09-27] MEDS: methylPREDNISolone Sod Succ 40 MG/ML VIAL IVPUSH ×2 (08:15→19:55)
[2023-09-27] MEDS: cloNIDine HCL 0.1 MG TABLET PO ×2 (08:15→19:55)
[2023-09-27] MEDS: 0.9 % Sodium Chloride Flush 3 ML SYRINGE IVFLUSH ×3 (08:17→19:55)
--- NOTE | 2023-09-27 09:39 | HO.PM.IMPN ---
Subjective Subjective Date of Service: 09/27/23 Interval History: sob Physical Exam Vital Signs: Vital Signs: Last Vital Signs Temp 97.1 F 09/27/23 03:08 Pulse 82 09/27/23 09:00 Resp 18 09/27/23 09:00 BP 141/85 H 09/27/23 07:34 Pulse Ox 95 09/27/23 07:34 O2 Del Method Nasal Cannula 09/27/23 07:34 O2 Flow Rate 2.0 09/27/23 07:34 BMI result Body Mass Index 35.3 General: AO X 3, no acute distress Resp: wheezing bilateral, no accessory muscles used CVS: S1,S2,RRR GI: soft, non tender, non distended Neuro: motor grossly intact, alert Psych: appropriate affect, appropriate insight Objective Data Active Medications Albuterol/Ipratropium (Albuterol/Iprat 2.5/0.5mg 3 Ml Ampul.Neb) 3 ml INHALE RQ4H WHILE AWAKE [facility] Last Admin: 09/27/23 09:00 Dose: 3 ml Documented By: ROBERTA Albuterol/Ipratropium (Albuterol/Iprat 2.5/0.5mg 3 Ml Ampul.Neb) 3 ml INHALE Q4H PRN PRN Reason: Wheezing Last Admin: 09/27/23 03:37 Dose: 3 ml Documented By: KORIN Bupropion HCl (Bupropion Hcl Xl 150 Mg Tab.Er.24h) 150 mg PO DAILY [facility] Last Admin: 09/27/23 08:15 Dose: 150 mg Documented By: KYLEIGH Clonidine HCl (Clonidine Hcl 0.1 Mg Tablet) 0.1 mg PO BID [facility]; Protocol Last Admin: 09/27/23 08:15 Dose: 0.1 mg Documented By: KYLEIGH Doxycycline Monohydrate (Doxycycline Monohydrate 100 Mg Capsule) 100 mg PO Q12H [facility] Last Admin: 09/27/23 08:15 Dose: 100 mg Documented By: KYLEIGH Enoxaparin Sodium (Enoxaparin Sodium 40 Mg/0.4 Ml Syringe) 40 mg SUBCUT Q24H [facility] Last Admin: 09/27/23 08:15 Dose: 40 mg Documented By: KYELIGH Fluoxetine HCl (Fluoxetine Hcl 20 Mg Capsule) 20 mg PO TID [facility] Last Admin: 09/27/23 08:15 Dose: 20 mg Documented By: KYLEIGH Hydroxyzine HCl (Hydroxyzine Hcl 50 Mg Tablet) 50 mg PO Q8H PRN PRN Reason: Anxiety Levothyroxine Sodium (Levothyroxine Sodium 88 Mcg Tablet) 88 mcg PO DAILY@0600 [facility] Last Admin: 09/27/23 05:37 Dose: 88 mcg Documented By: HOLLEY Lisinopril (Lisinopril 10 Mg Tablet) 10 mg PO DAILY [facility]; Protocol Last Admin: 09/27/23 08:15 Dose: 10 mg Documented By: KYLEIGH Methylprednisolone Sodium Succinate (Methylprednisolone Sod Succ 40 Mg/Ml Vial) 40 mg IVPUSH Q12H [facility] Last Admin: 09/27/23 08:15 Dose: 40 mg Documented By: KYLEIGH Omeprazole (Omeprazole 20 Mg Capsule.Dr) 20 mg PO DAILY@0630 [facility] Last Admin: 09/27/23 05:37 Dose: 20 mg Documented By: HOLLEY Sodium Chloride (0.9 % Sodium Chloride Flush 3 Ml Syringe) 3 ml IVFLUSH QSHIFT [facility] Last Admin: 09/27/23 08:17 Dose: 3 ml Documented By: KYLEIGH Zolpidem Tartrate (Zolpidem Tartrate 5 Mg Tablet) 5 mg PO BEDTIME [facility] Last Admin: 09/26/23 22:17 Dose: 5 mg Documented By: HOLLEY Labs 09/27/23 05:55 09/27/23 05:55 Labs: Laboratory Results - last 24 hr 09/26/23 09/26/23 09/26/23 12:15 12:35 15:04 MCV 73.6 L MCH 22.2 L MCHC 30.2 L RDW 18.5 H Plt Count 210 MPV 10.3 Immature Gran % (Auto) 0.4 Neut % (Auto) 68.7 Lymph % (Auto) 13.4 L Hart % (Auto) 8.4 Eos % (Auto) 8.2 H Baso % (Auto) 0.9 Lymph # (Auto) 0.9 L Hart # (Auto) 0.6 Eos # (Auto) 0.6 H Baso # (Auto) 0.1 Abs Immat Gran (auto) 0.03 Absolute Neuts (auto) 4.8 Absolute Nucleated RBC 0.000 Nucleated RBC % (auto) 0.0 PT 14.2 H INR 1.2 H APTT 32.2 Anion Gap 12 Estim Creat Clear Calc 78.7 Estimated GFR > 60 Random Glucose 119 H Fasting Glucose Lactic Acid 0.9 Calcium 9.6 Magnesium 2.0 Iron 53 TIBC 375 % Saturation 14 L Unsat Iron Binding 322 Ferritin 11 Total Bilirubin 0.8 AST 33 H ALT 24 Alkaline Phosphatase 71 Total Protein 8.2 H Albumin 4.5 Urine Color Yellow Urine Appearance Clear Urine pH 5.5 Ur Specific [place] 1.015 Urine Protein Negative Urine Glucose (UA) Negative Urine Ketones Negative Urine Blood Negative Urine Nitrite Negative Ur Leukocyte Esterase Negative Influenza Type A (PCR) NEGATIVE Influenza Type B (PCR) NEGATIVE RSV RNA Qual (PCR) NEGATIVE SARS-CoV-2 RNA (RT-PCR) NEGATIVE 09/27/23 05:55 MCV 73.6 L MCH 21.7 L MCHC 29.6 L RDW 18.3 H Plt Count 213 MPV 10.3 Immature Gran % (Auto) Neut % (Auto) Lymph % (Auto) Hart % (Auto) Eos % (Auto) Baso % (Auto) Lymph # (Auto) Hart # (Auto) Eos # (Auto) Baso # (Auto) Abs Immat Gran (auto) Absolute Neuts (auto) Absolute Nucleated RBC 0.000 Nucleated RBC % (auto) 0.0 PT INR APTT Anion Gap 13 Estim Creat Clear Calc 85.8 Estimated GFR > 60 Random Glucose Fasting Glucose 87 Lactic Acid Calcium 9.7 Magnesium Iron TIBC % Saturation Unsat Iron Binding Ferritin Total Bilirubin AST ALT Alkaline Phosphatase Total Protein Albumin Urine Color Urine Appearance Urine pH Ur Specific [place] Urine Protein Urine Glucose (UA) Urine Ketones Urine Blood Urine Nitrite Ur Leukocyte Esterase Influenza Type A (PCR) Influenza Type B (PCR) RSV RNA Qual (PCR) SARS-CoV-2 RNA (RT-PCR) Assessment and Plan (1) Hypoxia: Status: Acute Plan 63F PMH moderate persistent asthma, hypothyroid, mood disorder, obesity, htn, compensated HCV cirrhosis s/p treatement, lichen planus, presented with sob Acute hypoxic respiratory failure secondary to monitor persistent asthma with acute decompensation IV Solu-Medrol, DuoNebs, will add doxy po Wean O2 as tolerated mild microcytic anemia check iron studies, no gross bleeding Hypothyroid Continue levothyroxine Mood disorder Clonidine, atarax, buproprion Hypertension lisinopril, Compensated HCV cirrhosis Status post treatment for HCV Obesity Weight loss recommended DVT prophylaxis with Lovenox Full code reason for continued hospitalization:still wheezing, sob Quality Stroke Does the patient have a stroke diagnosis?: No VTE Prior VTE?: No VTE Risk Level:: Medical - moderate - high VTE Device Contraindication: Treatment Not Indicated VTE Drug Contraindication: N/A - Med Ordered
--- NOTE | 2023-09-27 16:19 | MHC.CM.PN ---
PT REPORTS SHE LIVES WITH AND CARES FOR HER MOTHER WHO IS BED BOUND WITH [facility] SHE REPORTS SHE IS INDEPENDENT WITH CARE SHE USES A NEBULIZER FOR DME SHE SAYS HER PCP IS DANIELLE SINCLAIR, BUT STATES SHE HAS NOT SEEN HER IN A LONG TIME DUE TO CANCELING APPTS SO IS UNSURE IF IT IS CURRENT + THRIVE ASSESSMENT BOOKLET PROVIDED DCP: HOME NO SERVICES VIA SELF TRANSPORT
[2023-09-27] MEDS: Zolpidem Tartrate 5 MG TABLET PO (19:55)
[2023-09-27] MEDS: Melatonin 3 MG TABLET 6 MG PO (20:04)
[2023-09-28] VITALS (8 sets, daily range): BP systolic 114–127; BP diastolic 60–77; PULSE 68–97; RESP 16–18; TEMP 36.3–37.1; O2SAT 95–98
[2023-09-28 06:33] LABS: Hematocrit 34.7 % (37.0-47.0); Hemoglobin 10.3 g/dl (12.0-16.0); Mean Corpuscular HGB Conc 29.7 g/dl (31.0-35.0); Mean Corpuscular Hemoglobin 22.4 pg (27.0-33.0); Mean Corpuscular Volume 75.4 fL (80.0-98.0); Mean Platelet Volume 10.6 fL (9.4-12.3); Platelet Count 208 X10*3/uL (160-400); Red Cell Distribution Width 18.8 % (11.0-16.0); White Blood Count 11.9 X10*3/uL (4.8-10.8)
[2023-09-28 06:41] LABS: Anion Gap 10 (12-20); Blood Urea Nitrogen 16 mg/dL (9-16); Calcium 9.1 mg/dL (8.4-10.2); Carbon Dioxide 27 mmol/L (22-29); Chloride 107 mmol/L (96-108); Creatinine Clr Calc Pharmacy 91.6; Estimated Glomerular Filt Rate > 60; Glucose Fasting 110 mg/dL (60-99); Potassium 4.5 mmol/L (3.3-5.1); Sodium 139 mmol/L (135-145)
[2023-09-28] MEDS: Omeprazole 20 MG CAPSULE.DR PO (06:45)
[2023-09-28] MEDS: Levothyroxine Sodium 88 MCG TABLET PO (06:45)
--- NOTE | 2023-09-28 07:57 | P.PNIM_ITS ---
Subjective Subjective Date of Service: 09/28/23 Interval History: sob on exertion, much better at rest Physical Exam 2 Vital Signs: Vital Signs: Last Vital Signs Temp 97.4 F 09/28/23 04:00 Pulse 81 09/28/23 04:00 Resp 16 09/28/23 04:00 BP 127/69 09/28/23 04:00 Pulse Ox 95 09/28/23 04:00 O2 Del Method Room Air 09/28/23 04:00 O2 Flow Rate 2.0 09/27/23 07:34 BMI result Body Mass Index 35.3 mild exp wheeze bilateral Objective Data Active Medications Albuterol/Ipratropium (Albuterol/Iprat 2.5/0.5mg 3 Ml Ampul.Neb) 3 ml INHALE RQ4H WHILE AWAKE [facility] Last Admin: 09/27/23 20:11 Dose: 3 ml Documented By: NOEL Albuterol/Ipratropium (Albuterol/Iprat 2.5/0.5mg 3 Ml Ampul.Neb) 3 ml INHALE Q4H PRN PRN Reason: Wheezing Last Admin: 09/27/23 03:37 Dose: 3 ml Documented By: KORIN Benzocaine (Throat Lozenge, Medicated Lozenge) 1 lozenge MUCOUS MEM Q2H PRN PRN Reason: Sore Throat Bupropion HCl (Bupropion Hcl Xl 150 Mg Tab.Er.24h) 150 mg PO DAILY [facility] Last Admin: 09/27/23 08:15 Dose: 150 mg Documented By: KYLEIGH Clonidine HCl (Clonidine Hcl 0.1 Mg Tablet) 0.1 mg PO BID [facility]; Protocol Last Admin: 09/27/23 19:55 Dose: 0.1 mg Documented By: REBECA Doxycycline Monohydrate (Doxycycline Monohydrate 100 Mg Capsule) 100 mg PO Q12H [facility] Last Admin: 09/27/23 19:55 Dose: 100 mg Documented By: REBECA Enoxaparin Sodium (Enoxaparin Sodium 40 Mg/0.4 Ml Syringe) 40 mg SUBCUT Q24H [facility] Last Admin: 09/27/23 08:15 Dose: 40 mg Documented By: KYLEIGH Fluoxetine HCl (Fluoxetine Hcl 20 Mg Capsule) 20 mg PO TID [facility] Last Admin: 09/27/23 19:55 Dose: 20 mg Documented By: REBECA Hydroxyzine HCl (Hydroxyzine Hcl 50 Mg Tablet) 50 mg PO Q8H PRN PRN Reason: Anxiety Levothyroxine Sodium (Levothyroxine Sodium 88 Mcg Tablet) 88 mcg PO DAILY@0600 [facility] Last Admin: 09/28/23 06:45 Dose: 88 mcg Documented By: ZURI Lisinopril (Lisinopril 10 Mg Tablet) 10 mg PO DAILY [facility]; Protocol Last Admin: 09/27/23 08:15 Dose: 10 mg Documented By: KYLEIGH Melatonin (Melatonin 3 Mg Tablet) 6 mg PO BEDTIME PRN PRN Reason: Insomnia Last Admin: 09/27/23 20:04 Dose: 6 mg Documented By: REBECA Methylprednisolone Sodium Succinate (Methylprednisolone Sod Succ 40 Mg/Ml Vial) 40 mg IVPUSH Q12H [facility] Last Admin: 09/27/23 19:55 Dose: 40 mg Documented By: REBECA Omeprazole (Omeprazole 20 Mg Capsule.) 20 mg PO DAILY@0630 [facility] Last Admin: 09/28/23 06:45 Dose: 20 mg Documented By: ZURI Sodium Chloride (0.9 % Sodium Chloride Flush 3 Ml Syringe) 3 ml IVFLUSH QSHIFT [facility] Last Admin: 09/27/23 19:55 Dose: 3 ml Documented By: REBECA Zolpidem Tartrate (Zolpidem Tartrate 5 Mg Tablet) 5 mg PO BEDTIME [facility] Last Admin: 09/27/23 19:55 Dose: 5 mg Documented By: REBECA Labs 09/28/23 05:57 09/28/23 05:57 Labs: Laboratory Results - last 24 hr 09/28/23 05:57 MCV 75.4 L MCH 22.4 L MCHC 29.7 L RDW 18.8 H Plt Count 208 MPV 10.6 Absolute Nucleated RBC 0.000 Nucleated RBC % (auto) 0.0 Anion Gap 10 L Estim Creat Clear Calc 91.6 Estimated GFR > 60 Fasting Glucose 110 H Calcium 9.1 D Microbiology Microbiology Results: Microbiology 09/26/23 13:06 Blood Culture - Preliminary Blood - Venous No growth after 24 hours. 09/26/23 12:35 Blood Culture - Preliminary Blood - Venous No growth after 24 hours. Assessment and Plan (1) Hypoxia: Status: Acute Plan 63F PMH moderate persistent asthma, hypothyroid, mood disorder, obesity, htn, compensated HCV cirrhosis s/p treatement, lichen planus, presented with sob Acute hypoxic respiratory failure secondary to monitor persistent asthma with acute decompensation continue IV Solu-Medrol, DuoNebs, doxy po check oxygen on ambulation Hypothyroid Continue levothyroxine Mood disorder Clonidine, atarax, buproprion Hypertension lisinopril, Compensated HCV cirrhosis Status post treatment for HCV Obesity Weight loss recommended DVT prophylaxis with Lovenox Full code reason for continued hospitalization:sob on exertion Quality Stroke Does the patient have a stroke diagnosis?: No VTE Prior VTE?: No VTE Risk Level:: Medical - moderate - high VTE Device Contraindication: Treatment Not Indicated VTE Drug Contraindication: N/A - Med Ordered
--- NOTE | 2023-09-28 08:01 | PM.DS ---
DS: Providers Provider Date of Service: 09/29/23 Date of admission: 09/26/23 14:55 Primary care physician: Viv Mcgovern CNP DS: Diagnosis Discharge Diagnosis (1) Hypoxia: Status: Acute DS: Summary Hospital Course Hospital Course: from initial hpi: 63F PMH moderate persistent asthma, hypothyroid, mood disorder, obesity, htn, compensated HCV cirrhosis s/p treatement, lichen planus, presented with sob. Patient was diagnosed with right lower lobe pneumonia on 08/28/2023. Completed course of antibiotics and steroids with some improvement. However, patient states she never fully recovered. She continues to have shortness of breath and productive green cough. On day of presentation shortness of breath significantly worsened so she came to the ED. In the ED patient desaturated to low 80s on ambulation. Recovers at rest. Chest x-ray unremarkable. denies fevers, chills. hospital course: Patient was admitted for acute hypoxic respiratory failure secondary to moderate persistent asthma with acute decompensation. Should she with IV Solu-Medrol, DuoNebs, doxycycline. Shortness of breath improved and she was able to be weaned off oxygen. She will be discharged home on 5 more days of prednisone and doxycycline. For hypothyroidism she was continued on Synthroid. For mood disorder she was continued on clonidine, Atarax, bupropion. For hypertension she was continue lisinopril. For compensated HCV cirrhosis she is status post treatment for hepatitis-C and will follow up outpatient. For obesity weight loss recommended. Patient is feeling better will be discharged home. Time Attestation Discharge coordination time: Greater than 30 minutes Quality: Safe Use of Opioids Does Pt have an Active Cancer Diagnosis on the Problem List?: No Quality: Stroke Does the patient have a stroke diagnosis?: No Physical Exam Vital Signs: Vital Signs: Last Vital Signs Temp 97.4 F 09/28/23 04:00 Pulse 81 09/28/23 04:00 Resp 16 09/28/23 04:00 BP 127/69 09/28/23 04:00 Pulse Ox 95 09/28/23 04:00 O2 Del Method Room Air 09/28/23 04:00 O2 Flow Rate 2.0 09/27/23 07:34 BMI result Body Mass Index 35.3 mild exp wheeze bilateral DS: Data Data Completed and Pending Labs on day of discharge: Laboratory Results - last 24 hr 09/28/23 05:57 WBC 11.9 H RBC 4.60 Hgb 10.3 L Hct 34.7 L MCV 75.4 L MCH 22.4 L MCHC 29.7 L RDW 18.8 H Plt Count 208 MPV 10.6 Absolute Nucleated RBC 0.000 Nucleated RBC % (auto) 0.0 Sodium 139 Potassium 4.5 Chloride 107 Carbon Dioxide 27 Anion Gap 10 L BUN 16 Creatinine 0.73 Estim Creat Clear Calc 91.6 Estimated GFR > 60 Fasting Glucose 110 H Calcium 9.1 D Preliminary micro results at discharge 09/26/23 13:06 Blood Culture - Preliminary Blood - Venous No growth after 24 hours. 09/26/23 12:35 Blood Culture - Preliminary Blood - Venous No growth after 24 hours. Discharge Plan Discharge Anticipated Discharge Date/Time: 09/28/23 07:59 Patient Disposition: Home, Self-Care Discharge Diagnosis: asthma Referrals: Viv Mcgovern CNP [Primary Care Provider] - 1 Week Discharge Medications: New doxycycline monohydrate 100 mg Capsule 100 mg PO Q12H Qty: 10 0RF prednisone 20 mg tablet 40 mg PO DAILY Qty: 10 0RF Continued clonidine HCl 0.1 mg tablet 0.1 mg PO BID ketoconazole 2 % shampoo 1 appl topical 2XW albuterol sulfate 2.5 mg /3 mL (0.083 %) solution for nebulization 2.5 mg inhalation Q6H PRN (Reason: wheezing) loperamide 2 mg capsule 2 mg PO Q4H PRN (Reason: Loose Stool) hydroxyzine pamoate 50 mg capsule 50 mg PO TID levothyroxine 88 mcg tablet 88 mcg PO DAILY pantoprazole 40 mg tablet,delayed release (DR/EC) 40 mg PO DAILY triamcinolone acetonide 0.1 % ointment 1 appl topical BID PRN (Reason: Rash) Protocol: Apply to: Apply to: FEET & HANDS lisinopril 10 mg tablet 10 mg PO DAILY zolpidem 10 mg tablet 10 mg PO BEDTIME albuterol sulfate [Ventolin HFA] 90 mcg/actuation HFA aerosol inhaler 1 puff inhalation Q6H PRN (Reason: wheezing) fluoxetine 20 mg capsule 20 mg PO TID bupropion HCl 150 mg tablet extended release 24 hr 150 mg PO DAILY melatonin 5 mg tablet,disintegrating 5 - 10 mg PO BEDTIME Discharge Orders: Discharge Order (Routine); Ordered 09/29/23 Ordered By: Dave Bains Diet: Advance to usual diet Activity on Discharge: As tolerated Stand Alone Forms: Patient Portal Discharge page Care Plan Goals: recovery Health Concerns: asthma Plan of Treatment: prednisone, doxy Assessment: see above
[2023-09-28] MEDS: FLUoxetine HCl 20 MG CAPSULE PO ×3 (08:04→20:37)
[2023-09-28] MEDS: buPROPion HCl XL 150 MG TAB.ER.24H PO (08:04)
[2023-09-28] MEDS: methylPREDNISolone Sod Succ 40 MG/ML VIAL IVPUSH ×2 (08:04→20:37)
[2023-09-28] MEDS: lisinopriL 10 MG TABLET PO (08:04)
[2023-09-28] MEDS: Doxycycline Monohydrate 100 MG CAPSULE PO ×2 (08:04→20:37)
[2023-09-28] MEDS: cloNIDine HCL 0.1 MG TABLET PO ×2 (08:04→20:37)
[2023-09-28] MEDS: Throat Lozenge, Medicated LOZENGE 1 LOZENGE MUCOUS MEM (08:04)
[2023-09-28] MEDS: Enoxaparin Sodium 40 MG/0.4 ML SYRINGE SUBCUT (08:04)
[2023-09-28] MEDS: 0.9 % Sodium Chloride Flush 3 ML SYRINGE IVFLUSH ×2 (08:07→20:42)
[2023-09-28] MEDS: Albuterol/Iprat 2.5/0.5MG 3 ML AMPUL.NEB INHALE ×4 (08:58→18:53)
[2023-09-28] MEDS: Zolpidem Tartrate 5 MG TABLET PO (20:37)
[2023-09-28] MEDS: Melatonin 3 MG TABLET 6 MG PO (20:40)
[2023-09-29] MEDS: Throat Lozenge, Medicated LOZENGE 1 LOZENGE MUCOUS MEM (01:08)
[2023-09-29 03:09] VITALS: BP 129/78; PULSE 75; RESP 16; TEMP 36.4; O2SAT 99
[2023-09-29] MEDS: Omeprazole 20 MG CAPSULE.DR PO (06:29)
[2023-09-29] MEDS: Levothyroxine Sodium 88 MCG TABLET PO (06:29)
[2023-09-29] MEDS: Albuterol/Iprat 2.5/0.5MG 3 ML AMPUL.NEB INHALE ×2 (07:37→11:38)
[2023-09-29 07:38] VITALS: PULSE 75; RESP 18; O2SAT 100
[2023-09-29 07:41] VITALS: BP 125/78; PULSE 69; RESP 18; TEMP 36.3; O2SAT 98
[2023-09-29] MEDS: methylPREDNISolone Sod Succ 40 MG/ML VIAL IVPUSH (08:36)
[2023-09-29] MEDS: cloNIDine HCL 0.1 MG TABLET PO (08:36)
[2023-09-29] MEDS: buPROPion HCl XL 150 MG TAB.ER.24H PO (08:36)
[2023-09-29] MEDS: Doxycycline Monohydrate 100 MG CAPSULE PO (08:36)
[2023-09-29] MEDS: Enoxaparin Sodium 40 MG/0.4 ML SYRINGE SUBCUT (08:36)
[2023-09-29] MEDS: 0.9 % Sodium Chloride Flush 3 ML SYRINGE IVFLUSH (08:36)
[2023-09-29] MEDS: lisinopriL 10 MG TABLET PO (08:36)
[2023-09-29] MEDS: FLUoxetine HCl 20 MG CAPSULE PO (08:36)
[2023-09-29 08:42] VITALS: O2SAT 95
--- NOTE | 2023-09-29 09:28 | MHC.CM.PN ---
PER EMR PATIENT IS MEDICALLY CLEARED FOR DC. PLAN IS HOME, SELF CARE. PATIENT'S CAR IS IN THE LOT AND PATIENT STATES SHE WILL TRANSPORT HERSELF. RN AWARE, NO SAFETY CONCERNS.
[2023-09-29 11:38] VITALS: PULSE 87; RESP 18; O2SAT 97
== END 2023-09-29 13:10 | disposition home or self-care (01) | DRG 141 ==
LOC: HO.ED 14:49 → HO.EDOVER 15:01 → HO.S3 15:31
PROVIDERS: Nurse Practitioner Family; Physician Assistant Medical; Admitting Provider Internal Medicine; Emergency Provider Student in an Organized Health Care Education/Training Program; PCP Nurse Practitioner Family; Visit Provider Internal Medicine
DX: J45.41 Moderate persistent asthma with (acute) exacerbation (principal); J96.01 Acute respiratory failure with hypoxia; K74.69 Other cirrhosis of liver; D50.9 Iron deficiency anemia, unspecified; E03.9 Hypothyroidism, unspecified; F39 Unspecified mood [affective] disorder; I10 Essential (primary) hypertension; E66.9 Obesity, unspecified; Z68.35 Body mass index [BMI] 35.0-35.9, adult; Z86.19 Personal history of other infectious and parasitic diseases; Z71.3 Dietary counseling and surveillance; Z20.822 Contact with and (suspected) exposure to COVID-19; Z79.890 Hormone replacement therapy; Z91.040 Latex allergy status; Z79.899 Other long term (current) drug therapy
CPT/HCPCS: 0241U; 36415; 71046; 71275; 80048; 80053; 81003; 82728; 83540; 83605; 83735; 84484; 85025; 85027; 85610; 85730; 87040; 93005; 94640; 99221; 99285; J1650; J2920; J2930; J3475; Q9967

== ENCOUNTER → 2023-09-26 12:02 | Outpatient (BNV) | payer OTHER, SELFPAY | PROVIDERS: Admitting Provider Internal Medicine; Emergency Provider Student in an Organized Health Care Education/Training Program; PCP Nurse Practitioner Family; Visit Provider Internal Medicine | DX: R06.02 Shortness of breath (principal) | CPT/HCPCS: 93010 ==

== ENCOUNTER → 2023-09-26 14:55 | Outpatient (BNV) | payer OTHER, SELFPAY | PROVIDERS: Admitting Provider Internal Medicine; Emergency Provider Student in an Organized Health Care Education/Training Program; PCP Nurse Practitioner Family; Visit Provider Internal Medicine | DX: J96.01 Acute respiratory failure with hypoxia (principal); J45.41 Moderate persistent asthma with (acute) exacerbation | CPT/HCPCS: 99223; 99232; 99233; 99239 ==